=== PATIENT | male | born 1970 | race Hispanic/Latino ===

== ENCOUNTER 2020-07-31 21:02 | Emergency (ER) | payer SELFPAY ==
[~2020-07-31] VITALS: Ht 175.3 cm; Wt 90.7 kg
[2020-07-31] MEDS ORDERED: ASPIRIN 325 MG TAB ONE (21:15)
[2020-07-31] MEDS ORDERED: LORAZEPAM INJ 2 MG/ML VIAL ONE (21:15)
[2020-07-31] MEDS ORDERED: ASPIRIN 81 MG CHEW TAB PO ONE (21:15)
[2020-07-31] MEDS ORDERED: LORAZEPAM INJ 2 MG/ML VIAL IV ONE (21:15)
[2020-07-31 21:21] LABS: BASOPHILS % 0.3 % (0.0-1.0); EOSINOPHILS # (AUTO) 0.2 (0.0-0.4); EOSINOPHILS % 1.7 % (0.0-6.0); HEMATOCRIT 44.4 % (38.2-49.6); LYMPHOCYTES # (AUTO) 2.4 (1.0-3.2); LYMPHOCYTES % 27.5 % (18.0-39.1); MEAN CORPUSCULAR HEMOGLOBIN 30.6 pg (28-32); MEAN CORPUSCULAR HGB CONC 33.8 g/dL (31-35); MEAN CORPUSCULAR VOLUME 90.6 fL (81-99); MONOCYTES # (AUTO) 0.8 (0.2-0.8); MONOCYTES % 9.1 % (4.4-11.3); NEUTROPHILS # (AUTO) 5.4 (2.1-6.9); NEUTROPHILS % 60.9 % (38.7-80.0); PLATELET COUNT 274 x10e3/uL (140-360); RED CELL DISTRIBUTION WIDTH 13.2 % (11.7-14.4)
[2020-07-31 21:30] LABS: INR 0.94; PROTHROMBIN TIME 13.1 seconds (11.9-14.5)
[2020-07-31 21:31] LABS: PARTIAL THROMBOPLASTIN TIME 31.5 seconds (23.8-35.5)
[2020-07-31 21:40] LABS: ALANINE AMINOTRANSFERASE 28 IU/L (0-55); ALBUMIN 4.5 g/dL (3.5-5.0); ALBUMIN/GLOBULIN RATIO 1.3 (0.8-2.0); ALKALINE PHOSPHATASE 66 IU/L (40-150); ANION GAP 12.9 mmol/L (8-16); BLOOD UREA NITROGEN 15 mg/dL (7-26); BUN/CREATININE RATIO 13 (6-25); CALCIUM 9.7 mg/dL (8.4-10.2); CARBON DIOXIDE 27 mmol/L (22-29); CHLORIDE 101 mmol/L (98-107); CREATINE KINASE 228 IU/L (30-200); CREATININE, SERUM 1.19 mg/dL (0.72-1.25); EST GLOMERULAR FILTRATION RATE > 60 ML/MIN (60-); GLUCOSE 96 mg/dL (74-118); POTASSIUM 3.9 mmol/L (3.5-5.1); SODIUM 137 mmol/L (136-145)
[2020-08-01 00:34] LABS: CREATINE KINASE MB 2.3 ng/mL (0-5.0)
[2020-08-01 01:36] VITALS: BP 119/85
== END 2020-08-01 01:50 | disposition home or self-care (01) ==
LOC: ER 22:04
DX: R07.89 Other chest pain (principal); F15.10 Other stimulant abuse, uncomplicated; F17.210 Nicotine dependence, cigarettes, uncomplicated
CPT/HCPCS: 36415; 71045; 80053; 82550; 82553; 83880; 84484; 85025; 85610; 85730; 93005; 99283; J2060